=== PATIENT | female | born 1945 | race Caucasian/White ===

== ENCOUNTER 2020-03-21 18:41 | Emergency (ER) | payer MEDICARE ==
[~2020-03-21] VITALS: Ht 160 cm; Wt 109.1 kg
[2020-03-21 19:02] VITALS: TEMP 98.2
[2020-03-21 19:40] LABS: BILIRUBIN,TOTAL 0.7 mg/dL (0.0-1.0); C-REACTIVE PROTEIN 1.4 mg/dL (0.0-0.9); CALCIUM 9.4 mg/dL (8.4-10.2); CREATININE, serum 1.44 (0.52-1.25); TOTAL PROTEIN 7.8 gm/dL (6.4-8.2)
[2020-03-21 19:55] LABS: BASO # 0.1 (0.0-0.2); BASO % 0.7 % (0.0-2.0); EOS # 0.5 (0.0-0.7); EOS % 3.7 % (0-4.0); GRAN # 9.6 (1.4-6.5); GRAN % 73.3 % (42.2-75.2); LYMPH % 15.3 % (20.0-51.0); MEAN CELL VOLUME 91 fl (80.0-100.0); MEAN CORPUSCULAR HGB CONC 32 g/dl (33.0-37.0); MEAN PLATELET VOLUME 9.4 fl (7.4-10.4); MONO # 0.9 (0.1-0.6); MONO % 6.6 % (1.7-9.3); PLATELET COUNT 485 K/mm3 (130-400); RED BLOOD COUNT 3.36 M/mm3 (4.10-5.30); REDCELL DISTRIBUTION WIDTH-CV 16.8 % (11.5-14.5)
[2020-03-21 20:03] LABS: HEMATOCRIT 30.4 % (37.0-47.0); HEMOGLOBIN 9.7 g/dl (12.5-16.0); MEAN CORPUSCULAR HEMOGLOBIN 29 pg (27.0-31.0)
[2020-03-21] MEDS ORDERED: NEURONTIN300 MG/CAP (21:31)
[2020-03-21] MEDS ORDERED: LIPITOR20 MG PO (21:31)
[2020-03-21] MEDS ORDERED: DIOVAN 80MG80 MG PO (21:32)
[2020-03-21] MEDS ORDERED: ZYLOPRIM 100MG100 MG PO (22:35)
[2020-03-21] MEDS ORDERED: TOPROL XL 50MG50 MG PO (22:35)
[2020-03-21] MEDS ORDERED: ASPIRIN 81M81 MG/TA2 PO (22:35)
[2020-03-21] MEDS ORDERED: PRILOSEC 20MG20 MG PO (22:36)
[2020-03-21] MEDS ORDERED: DYAZIDE 25 MG-31 CAP PO (22:37)
[2020-03-21 22:45] VITALS: BP 173/63; PULSE 74
[2020-03-21 23:15] LABS: COLLECTION METHOD CLEAN CATCH
[2020-03-21 23:23] LABS: MUCOUS Present /lpf; PH 5 (5-8); SQUAMOUS EPITHELIAL 0-2 /hpf; URINE APPEARANCE Clear; URINE BACTERIA None Seen /hpf; URINE BILIRUBIN Negative (NEGATIVE); URINE BLOOD Negative (NEGATIVE); URINE COLOR Yellow; URINE GLUCOSE Negative (NEGATIVE); URINE KETONE Negative (NEGATIVE); URINE LEUKOCYTE ESTERASE Negative (NEGATIVE); URINE NITRATE Negative (NEGATIVE); URINE PROTEIN(semi-quant) Negative (NEGATIVE); URINE RBC 0-2 /hpf; URINE UROBILINOGEN Negative (NEGATIVE)
== END 2020-03-21 23:15 | disposition short-term general hospital (02) ==
LOC: COL.ER 18:41
PROVIDERS: Family Medicine
DX: I77.6 Arteritis, unspecified (principal); I10 Essential (primary) hypertension; Z79.82 Long term (current) use of aspirin
CPT/HCPCS: J1170; J2405; J3370; J7040; J7120; Q9967